=== PATIENT | male | born 1975 | race Hispanic/Latino ===

== ENCOUNTER 2017-03-13 23:48 | Emergency (ER) | payer MEDICARE ==
[2017-03-14 01:12] LABS: Urine Drugs of Abuse Note Disclamer
[2017-03-14 01:26] LABS: Bilirubin,Urine NEG (Negative); Blood,Urine NEG (Negative); Ketones,Urine NEG (Negative); Leukocyte Esterase,Urine NEG (Negative); Mucus,Urine FEW /HPF; Nitrite,Urine NEG (Negative); Protein,Urine <15 mg/dL mg/dL (Negative)
[2017-03-14 02:21] LABS: Basophils % (Auto) 0.3 % (0.0-1.8); Eosinophils % (Auto) 1.8 % (0.0-4.3); Hematocrit 46.6 % (35.5-45.6); Hemoglobin 15.8 gm/dl (11.8-15.2); Mean Corpuscular HGB Conc 34 % (32-34); Mean Corpuscular Hemoglobin 31 pg (28-32); Mean Corpuscular Volume 91 fl (84-94); Platelet Count 225 K/mm3 (140-440); Red Blood Count 5.13 M/mm3 (3.65-5.03); Red Cell Distribution Width 13.5 % (13.2-15.2)
[2017-03-14 02:38] LABS: Anion Gap 19 mmol/L; BUN/Creatinine Ratio 24.28; Blood Urea Nitrogen 17 mg/dL (9-20); Calcium 9.6 mg/dL (8.4-10.2); Carbon Dioxide 26 mmol/L (22-30); Chloride 101.3 mmol/L (98-107); Glucose 96 mg/dL (75-100); Potassium 4.4 mmol/L (3.6-5.0); Sodium 142 mmol/L (137-145)
--- NOTE | 2017-03-14 06:55 | Emergency Department Report ---
ED Psych HPI - General Chief Complaint: Psych Stated Complaint: MH EVAL Time Seen by Provider: 03/14/17 06:47 Source: patient Mode of arrival: Ambulatory Limitations: No Limitations - History of Present Illness Initial Comments: Patient is stated that he's been hearing voices asking him to kill himself. Complaint: suicidal ideation -: Gradual Associated Psychiatric Symptoms: suicidal ideation, auditory hallucinations, visual hallucinations Quality: constant If Self Harm: admits thoughts of - Related Data Home Medications Medication Instructions Recorded Confirmed Last Taken Mirtazapine [Remeron] 15 mg PO QHS 07/18/15 03/14/17 Unknown SEROquel 600 mg PO HS 03/14/17 03/14/17 Unknown Allergies Allergy/AdvReac Type Severity Reaction Status Date / Time fluphenazine enanthate AdvReac Unknown Verified 11/29/13 18:58 [From Prolixin] fluphenazine HCl AdvReac Unknown Verified 11/29/13 18:58 [From Prolixin] haloperidol [From Haldol] AdvReac Unknown Verified 11/29/13 18:58 haloperidol lactate AdvReac Unknown Verified 11/29/13 18:58 [From Haldol] risperidone [From Risperdal] AdvReac Unknown Verified 11/29/13 18:58 ED Review of Systems ROS: Stated complaint: MH EVAL Other details as noted in HPI Comment: All other systems reviewed and negative Constitutional: denies: chills, fever Respiratory: denies: cough, shortness of breath Cardiovascular: denies: chest pain ED Past Medical Hx - Past Medical History Previous Medical History?: Yes Hx Psychiatric Treatment: Yes Additional medical history: high cholesterol. suicide attempts. schizoeffective disorder. bipolar. - Surgical History Past Surgical History?: Yes Additional Surgical History: nose, right elbow and left jaw - Social History Smoking Status: Current Every Day Smoker Substance Use Type: Cocaine - Medications Home Medications: Home Medications Medication Instructions Recorded Confirmed Last Taken Type Mirtazapine [Remeron] 15 mg PO QHS 07/18/15 03/14/17 Unknown History SEROquel 600 mg PO HS 03/14/17 03/14/17 Unknown History ED Physical Exam - General Limitations: No Limitations General appearance: alert, in no apparent distress - Eye Eye exam: Present: normal appearance - ENT ENT exam: Present: normal exam - Neck Neck exam: Present: normal inspection. Absent: tenderness, meningismus - Respiratory Respiratory exam: Present: normal lung sounds bilaterally. Absent: rales, rhonchi - Cardiovascular Cardiovascular Exam: Present: regular rate, normal rhythm, normal heart sounds - GI/Abdominal GI/Abdominal exam: Present: soft. Absent: tenderness, guarding, rebound, rigid , pulsatile mass, hernia - Neurological Exam Neurological exam: Present: alert, oriented X3, CN II-XII intact - Psychiatric Psychiatric exam: Present: suicidal ideation - Skin Skin exam: Present: warm, intact ED Course Vital Signs 03/14/17 03/14/17 03/14/17 00:45 05:44 06:43 Temperature 98.8 F Pulse Rate 84 68 Respiratory 16 18 16 Rate Blood Pressure 116/78 Blood Pressure 153/101 [Right] O2 Sat by Pulse 96 97 100 Oximetry 03/14/17 08:16 Temperature Pulse Rate 92 H Respiratory 20 Rate Blood Pressure Blood Pressure 100/56 [Right] O2 Sat by Pulse 98 Oximetry ED Medical Decision Making - Lab Data Result diagrams: 03/14/17 01:50 03/14/17 01:50 Critical care attestation.: If time is entered above; I have spent that time in minutes in the direct care of this critically ill patient, excluding procedure time. ED Disposition Clinical Impression: Acute psychosis, Suicidal ideation Disposition: DC/TX-65 PSY HOSP/PSY UNIT Is pt being admited?: No Condition: Stable Referrals: PRIMARY CARE, [Primary Care Provider] - 3-5 Days
[2017-03-14 08:17] VITALS: BP 100/56
--- NOTE | 2017-03-14 12:54 | Consultation ---
History of Present Illness - Reason for Consult Consult date: 03/14/17 Reason for consult: Mental Health Evaluation Requesting physician: MARGARET BILLS - Chief Complaint Chief complaint: "Sick of living" - History of Present Psychiatric Illness 41 y.o. male presenting to [facility] for SI's and AH's. Today patient is calm and cooperative during assessment. He stated that he is suicidal because of voices he hear and life stressors. He stated that the voices are continuous throughout the day. He stated he can ignore the voices when he is on his medications, but currently has not been compliant. Also, he stated that he would like his life to be better (not having a mental illness and lacking education per the patient) . He stated that he haven't had a job in such a long time it bothers him to the point of being suicidal. He stated that he did not have a plan at this time to kill himself. He stated that the voices are "unbearable." He denies any suicide attempts in the past. He denies HI's and VH's. He stated sleep disturbances the last 3 days, but denies a poor appetite. He admit to a cocaine addiction, but denies alcohol consumption. Medications and Allergies Allergies Allergy/AdvReac Type Severity Reaction Status Date / Time fluphenazine enanthate AdvReac Unknown Verified 11/29/13 18:58 [From Prolixin] fluphenazine HCl AdvReac Unknown Verified 11/29/13 18:58 [From Prolixin] haloperidol [From Haldol] AdvReac Unknown Verified 11/29/13 18:58 haloperidol lactate AdvReac Unknown Verified 11/29/13 18:58 [From Haldol] risperidone [From Risperdal] AdvReac Unknown Verified 11/29/13 18:58 Home Medications Medication Instructions Recorded Confirmed Last Taken Type Mirtazapine [Remeron] 15 mg PO QHS 07/18/15 03/14/17 Unknown History SEROquel 600 mg PO HS 03/14/17 03/14/17 Unknown History Past psychiatric history - Past Medical History Past Medical History: other (High Cholesterol) Past Surgical History: Other (Jaw) - past Psychiatric treatment and history Psych: Addictions, Bipolar, Schizophrenia psychiatric treatment history: Multiple inpatient psy services. Denies a fam psy hx. - Social History Social history: other (10th grade education) Mental Status Exam - Vital signs Last Vital Signs Temp 98.8 F 03/14/17 00:45 Pulse 92 H 03/14/17 08:16 Resp 20 03/14/17 08:16 BP 100/56 03/14/17 08:16 Pulse Ox 98 03/14/17 08:16 - Exam Narrative exam: ROS: (+) Psychosis/Possibly Manic MSE: Appearance: calm, cooperative Behavior: regular eye contact Speech: regular rate and tone Mood: dysphoric Affect: labile Thought Process: circumstantial Thought Content: denies HI's and VH's Motor Activity: ambulatory Cognition: A/Ox 3 Insight: limited Judgment: limited Results Result Diagrams: 03/14/17 01:50 03/14/17 01:50 Abnormal lab results 03/14/17 03/14/17 Range/Units 01:50 01:50 RBC 5.13 H (3.65-5.03) M/mm3 Hgb 15.8 H (11.8-15.2) gm/dl Hct 46.6 H (35.5-45.6) % Wilson % (Auto) 8.5 H (0.0-7.3) % Creatinine 0.7 L (0.8-1.5) mg/dL All other labs normal. Assessment and Plan Assessment and plan: Impression: Historical Dx: Schizoaffective DO. Unspecified Psychotic/Mood DO. Substance Use DO (cocaine). Today patient is calm and cooperative during assessment. Active psychosis (AH's). DDx: R/O Bipolar, R/O Substance Induced Mood DO, R/O Substance Induced Psychosis Recommendation/Plan: Continue 1013 with placement to inpatient psy services. Start Seroquel 200 mg PO HS for psychotic symptoms/mood. Discussed possible metabolic side effects of Seroquel with patient. Discussed generalized coping skills with patient.
== END 2017-03-14 19:01 ==
LOC: EEVIPCON 23:48 → ED 23:48
DX: R45.851 Suicidal ideations (principal); F23 Brief psychotic disorder; F17.200 Nicotine dependence, unspecified, uncomplicated
CPT/HCPCS: 36415; 80048; 80307; 81001; 85025; 99285; G0480; 80320

== ENCOUNTER 2021-02-26 22:52 | Emergency (ER) | payer MEDICARE ==
[2021-02-27 00:23] LABS: Basophils % (Auto) 0.3 % (0.0-1.8); Eosinophils % (Auto) 0.3 % (0.0-4.3); Hematocrit 48.9 % (35.5-45.6); Lymphocytes # (Auto) 1.4 K/mm3 (1.2-5.4); Lymphocytes % (Auto) 17.3 % (13.4-35.0); Mean Corpuscular HGB Conc 35 % (32-34); Mean Corpuscular Volume 92 fl (84-94); Monocytes # (Auto) 0.7 K/mm3 (0.0-0.8); Monocytes % (Auto) 8.1 % (0.0-7.3); Platelet Count 276 K/mm3 (140-440); Red Blood Count 5.32 M/mm3 (3.65-5.03)
[2021-02-27 00:50] LABS: BUN/Creatinine Ratio 28; Blood Urea Nitrogen 22 mg/dL (9-20); Calcium 9.5 mg/dL (8.4-10.2); Hemolysis Index 19
[2021-02-27 02:17] LABS: Bilirubin,Urine NEG (Negative); Blood,Urine NEG (Negative); Color,Urine Amber (Yellow); Mucus,Urine 3+ /HPF
[2021-02-27 02:23] LABS: Amphetamine Screen,Urine PRESUMPTIVE POSITIVE; Benzodiazepines Screen,Urine PRESUMPTIVE NEGATIVE; Cannabinoid Screen,Urine PRESUMPTIVE NEGATIVE; Cocaine Screen,Urine PRESUMPTIVE POSITIVE; Methadone Screen,Urine PRESUMPTIVE NEGATIVE; Opiate Screen,Urine PRESUMPTIVE NEGATIVE
--- NOTE | 2021-02-27 02:31 | Emergency Department Report ---
ED Psych HPI - General Chief Complaint: Psych Stated Complaint: MH EVAL Time Seen by Provider: 02/27/21 01:12 Source: patient Mode of arrival: Ambulatory - History of Present Illness Initial Comments: Patient is a 45-year-old male with history of schizoaffective disorder presents to the emergency department with complaint of issues. He initially states that he is not homicidal or suicidal but needs help with some events that have happened in his rooming house. Upon further evaluation he then starts stating that there is a man in the waiting room and that he has been convinced to drive a getaway car. He also speaks in detail about the nurse practitioner who he sees in how he called recently and she is no longer available for appointments. He states that he takes Zyprexa, Depakote, Cogentin and melatonin. He states he still has medications at home. - Related Data Home Medications Medication Instructions Recorded Confirmed Last Taken Mirtazapine [Remeron] 15 mg PO QHS 07/18/15 03/14/17 Unknown SEROquel 600 mg PO HS 03/14/17 03/14/17 Unknown Allergies Allergy/AdvReac Type Severity Reaction Status Date / Time fluphenazine enanthate AdvReac Unknown Verified 11/29/13 18:58 [From Prolixin] fluphenazine HCl AdvReac Unknown Verified 11/29/13 18:58 [From Prolixin] haloperidol [From Haldol] AdvReac Unknown Verified 11/29/13 18:58 haloperidol lactate AdvReac Unknown Verified 11/29/13 18:58 [From Haldol] risperidone [From Risperdal] AdvReac Unknown Verified 11/29/13 18:58 ED Review of Systems ROS: Stated complaint: MH EVAL Other details as noted in HPI Constitutional: denies: chills, fever Eyes: denies: eye discharge ENT: denies: dental pain Respiratory: denies: cough Cardiovascular: denies: chest pain Endocrine: no symptoms reported Gastrointestinal: denies: abdominal pain, nausea, vomiting Genitourinary: denies: dysuria Musculoskeletal: denies: back pain Skin: denies: rash Neurological: denies: headache Psychiatric: as per HPI. denies: auditory hallucinations, visual hallucinations, homicidal thoughts, suicidal thoughts Hematological/Lymphatic: denies: easy bleeding ED Past Medical Hx - Past Medical History Previous Medical History?: Yes Hx Psychiatric Treatment: Yes (Schizophrenia) Additional medical history: high cholesterol. suicide attempts. schizoeffe ctive disorder. bipolar. - Surgical History Past Surgical History?: Yes Additional Surgical History: nose, right elbow and left jaw - Social History Smoking Status: Current Every Day Smoker Substance Use Type: Cocaine - Medications Home Medications: Home Medications Medication Instructions Recorded Confirmed Last Taken Type Mirtazapine [Remeron] 15 mg PO QHS 07/18/15 03/14/17 Unknown History SEROquel 600 mg PO HS 03/14/17 03/14/17 Unknown History ED Physical Exam - General Limitations: No Limitations General appearance: alert, in no apparent distress - Head Head exam: Present: atraumatic, normocephalic - Eye Eye exam: Present: normal appearance - ENT ENT exam: Present: mucous membranes moist - Neck Neck exam: Present: normal inspection - Respiratory Respiratory exam: Present: normal lung sounds bilaterally. Absent: respiratory distress - Cardiovascular Cardiovascular Exam: Present: regular rate, normal rhythm. Absent: systolic murmur, diastolic murmur, rubs, gallop - GI/Abdominal GI/Abdominal exam: Present: soft, normal bowel sounds - Rectal Rectal exam: Present: deferred - Extremities Exam Extremities exam: Present: normal inspection - Back Exam Back exam: Present: normal inspection - Neurological Exam Neurological exam: Present: alert - Psychiatric Psychiatric exam: Present: flat affect, other (tangential speech; paranoid delus ions) ED Course Vital Signs 02/26/21 02/27/21 02/27/21 23:29 01:24 09:15 Temperature 97.6 F 97.9 F Pulse Rate 93 H 82 Respiratory 17 18 18 Rate Blood Pressure 154/103 Blood Pressure 121/75 [Left] O2 Sat by Pulse 97 99 98 Oximetry - Reevaluation(s) Reevaluation #1: 02/27/21 02:31 Patient is medically cleared. ED Medical Decision Making - Lab Data Result diagrams: 02/26/21 23:40 02/26/21 23:40 - Medical Decision Making Patient is a 45-year-old male with history of schizoaffective who presents to the emergency department with complaints of issues at home. Was states when he is needs he states that he needs some resources. He denies any homicidal or suicidal ideations. 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 We will plan for patient to be evaluated by psychiatry but at this time patient does not meet criteria for 1013 hold. Critical care attestation.: If time is entered above; I have spent that time in minutes in the direct care of this critically ill patient, excluding procedure time. ED Disposition Clinical Impression: Amphetamine dependence Disposition: DC-01 TO HOME OR SELFCARE Is pt being admited?: No Condition: Stable Instructions: Amphetamines Use Disorder Additional Instructions: Professional and Agency Contacts To help Res[facility] Crises(03/03) [place] Crisis Line: Suicide Prevention Line: Crisis Text Line: Text START to 112454 Emergency: 911 Outpatient COMMUNITY Behavioral Health Resources: LILIANA: [facility] [address] [place], [place] [address] WARSAW: [facility] [address] [place] [address] [facility] - [address] [place] [id number] Friday thru Friday - 8am - 5pm [facility] Address: [address] [place] [address] [place]: [facility] Address: [address] [place] [address] Friday thru Friday- 7am-2pm [facility] Address: [address] [place] [address] Friday thru Friday: 8:30AM-5PM In case of an emergency, please contact the following numbers: [place] Crisis and Access Line: Number: Crisis Text Line: (Text START) Number: 625667 Suicide Prevention Line: Number: Emergency Number: 911 SUBSTANCE ABUSE PROGRAMS: [facility]: Location: [place], [place] [facility] Address: [address] [place] [address] [id number] [facility]: Address: [address] [place] [address] [facility]: Address: [address] [place] [address] [facility]: Address: [address] [place] [address] [facility] Address: [address] [place] [address]. Please contact above numbers to attempt placement into free based program. Medicaid Programs: [facility]: Address: [address] [place] [address] [facility]: Address: [address] [place] [address] OUTPATIENT MENTAL HEALTH RESOURCES [facility], [address] [place], [place] [id number] [facility] Ted Ramos MD: [address] [place] [address] [facility]: [address] [place], [place] [id number] [facility] [place] [address] [phone] [facility]: [address] [facility] [address] [place] [address] [phone] [facility]: [address] [facility] [address] [facility] [id number] [facility]: [address] [place], [place] Mauro Manzo MD: [address] [facility] [id number] [facility]: [address] [place], [place] [phone] [place] CRISIS AND ACCESS LINE: * Referrals: PRIMARY CARE, [Primary Care Provider] - 3-5 Days
[2021-02-27 09:16] VITALS: BP 121/75
--- NOTE | 2021-02-27 11:06 | Consultation ---
History of Present Illness - Reason for Consult Consult date: 02/27/21 Reason for consult: drug use - History of Present Psychiatric Illness Per ER Nurse: Patient is a 45-year-old male with history of schizoaffective disorder presents to the emergency department with complaint of issues. He initially states that he is not homicidal or suicidal but needs help with some events that have happened in his rooming house. Upon further evaluation he then starts stating that there is a man in the waiting room and that he has been convinced to drive a getaway car. He also speaks in detail about the nurse practitioner who he sees in how he called recently and she is no longer available for appointments. He states that he takes Zyprexa, Depakote, Cogentin and melatonin. He states he still has medications at home. During my evaluation of 45y/o Rajiv Alvarez, he is calm and cooperative. He says he's "okay, a little depressed." He says he had an episode where he lives. He says he lives with some people and had some issues. He denies SI/HI, but states "my plan was never to hurt myself or anybody." He says "just things I'm going through with this drug." The patient says "I'm on Ice and recently it's getting bad." He says he takes his medications "on and off." He denies hallucinations of any kind. PAST PSYCHIATRIC HISTORY: Diagnoses: schizoaffective disorder Suicide attempts or Self-harm behavior: Denies Prior psychiatric hospitalizations: yes Substance Abuse history: "Ice" Previous psychiatric medications tried: Cogentin, zyprexa, depakote Outpatient treatment: yes PAST MEDICAL HISTORY: None reported Family Psychiatric History: None reported or documented SOCIAL HISTORY Marital Status: Single Living Arrangements: live in a home with people Employment Status: Disabled Access to guns/weapons: Denies Education: History of Abuse: Denies Legal History: Denies REVIEW OF SYSTEMS Constitutional: Negative for weight loss ENT: Negative for stridor Respiratory: Negative for cough or hemoptysis All other systems reviewed and are negative MENTAL STATUS EXAMINATION General Appearance and Behavior: Age appropriate, good hygiene, wearing appropriate clothes, cooperative polite with questioning Cooperation: cooperative Psychomotor Behavior: Normal behavior Mood: "okay, a little depressed." Affect and affective range: congruent to stated mood Thought Process: Goal directed Thought Content: within reality Speech: Normal volume, Regular rate and rhythm Intellectual Functioning: Average Suicidal Ideation: Denies Homicidal Ideation: Denies hallucination: Denies Delusions: None elicited Impulse Control: Limited Insight and Judgment: limited Memory: Limited Attention: Divided Orientation: Drowsy Diagnoses: Amphetamine Dependence with Substance Induced Mood Current Visit: Yes Status: Acute RECOMMENDATIONS Continue previously prescribed medications Risks, benefits and alternatives of medications discussed with the patient, questions answered and consent obtained from patient. PSYCHOTHERAPY: Supportive psychotherapy provided MEDICAL: Per primary team DELIRIUM PRECAUTIONS: Please re-orient patient frequently, keep lights on during the day, and minimize benzodiazepines and opiates as these medications could worsen patient's confusion. 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 The patient understands that if SI/HI or any fear of endangerment are to arise he is to seek immediate assistance. The solar sales assessor to further discuss safety plan The solar sales assessor to give all needed resources for outpatient services, med management, drug rehab, CBT The patient to abstain from all illicit drug use He is to follow up with outpatient psych in 7 to 14 days upon discharge FOLLOW-UP: Will sign off Thank you for the consult. Please contact with any questions and/or concerns. Case staffed with Dr. Muse Medications and Allergies Allergies Allergy/AdvReac Type Severity Reaction Status Date / Time fluphenazine enanthate AdvReac Unknown Verified 11/29/13 18:58 [From Prolixin] fluphenazine HCl AdvReac Unknown Verified 11/29/13 18:58 [From Prolixin] haloperidol [From Haldol] AdvReac Unknown Verified 11/29/13 18:58 haloperidol lactate AdvReac Unknown Verified 11/29/13 18:58 [From Haldol] risperidone [From Risperdal] AdvReac Unknown Verified 11/29/13 18:58 Home Medications Medication Instructions Recorded Confirmed Last Taken Type Mirtazapine [Remeron] 15 mg PO QHS 07/18/15 03/14/17 Unknown History SEROquel 600 mg PO HS 03/14/17 03/14/17 Unknown History Mental Status Exam - Vital signs Last Vital Signs Temp 97.9 F 02/27/21 09:15 Pulse 82 02/27/21 09:15 Resp 18 02/27/21 09:15 BP 121/75 02/27/21 09:15 Pulse Ox 98 02/27/21 09:15 Results Result Diagrams: 02/26/21 23:40 02/26/21 23:40 Abnormal lab results 02/26/21 02/26/21 02/26/21 Range/Units 23:40 23:40 23:40 RBC 5.32 H (3.65-5.03) M/mm3 Hgb 17.0 H (11.8-15.2) gm/dl Hct 48.9 H (35.5-45.6) % MCHC 35 H (32-34) % [place] % (Auto) 8.1 H (0.0-7.3) % Seg Neutrophils % 74.0 H (40.0-70.0) % Chloride 97.9 L (98-107) mmol/L BUN 22 H (9-20) mg/dL Glucose 107 H (75-100) mg/dL Ur Specific [place] (1.003-1.030) Salicylates < 0.3 L (2.8-20.0) mg/dL Acetaminophen (10.0-30.0) ug/mL 02/26/21 02/26/21 Range/Units 23:40 Unknown RBC (3.65-5.03) M/mm3 Hgb (11.8-15.2) gm/dl Hct (35.5-45.6) % MCHC (32-34) % [place] % (Auto) (0.0-7.3) % Seg Neutrophils % (40.0-70.0) % Chloride (98-107) mmol/L BUN (9-20) mg/dL Glucose (75-100) mg/dL Ur Specific [place] 1.032 H (1.003-1.030) Salicylates (2.8-20.0) mg/dL Acetaminophen 5.0 L (10.0-30.0) ug/mL All other labs normal.
== END 2021-02-27 13:36 | disposition home or self-care (01) ==
LOC: ED 22:52 → EEVIPCON 22:52 → ED 02-27 13:36
DX: F25.9 Schizoaffective disorder, unspecified (principal); F17.200 Nicotine dependence, unspecified, uncomplicated; F14.10 Cocaine abuse, uncomplicated; Z98.890 Other specified postprocedural states; Z79.899 Other long term (current) drug therapy; Z88.8 Allergy status to other drugs, medicaments and biological substances
CPT/HCPCS: 36415; 80048; 80307; 80320; 81001; 85025; G0480

== ENCOUNTER 2021-10-01 19:43 | Emergency (ER) | payer MEDICARE ==
[2021-10-01 23:35] LABS: Basophils % (Auto) 0.3 % (0.0-1.8); Eosinophils # (Auto) 0.1 K/mm3 (0.0-0.4); Eosinophils % (Auto) 1.1 % (0.0-4.3); Hematocrit 46.8 % (35.5-45.6); Hemoglobin 16.3 gm/dl (11.8-15.2); Lymphocytes # (Auto) 1.8 K/mm3 (1.2-5.4); Lymphocytes % (Auto) 31.6 % (13.4-35.0); Mean Corpuscular HGB Conc 35 % (32-34); Mean Corpuscular Volume 93 fl (84-94); Monocytes # (Auto) 0.5 K/mm3 (0.0-0.8); Monocytes % (Auto) 9.1 % (0.0-7.3); Platelet Count 219 K/mm3 (140-440); Red Blood Count 5.04 M/mm3 (3.65-5.03); Red Cell Distribution Width 13.8 % (13.2-15.2)
[2021-10-01 23:49] LABS: Blood Urea Nitrogen 17 mg/dL (9-20); Calcium 9.6 mg/dL (8.4-10.2); Hemolysis Index 58
[2021-10-01 23:51] LABS: BUN/Creatinine Ratio 24
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
[2021-10-02] MEDS ORDERED: TETANUS,DIPH,PERTUSS(ACELL) VACCINE 0.5 ML SYRINGE IM ONE (01:49)
[2021-10-02] MEDS ORDERED: HYDROmorphone 1 MG/1 ML INJ IV ONE (01:50)
[2021-10-02] MEDS ORDERED: ONDANSETRON 4 MG/2 ML INJ IV ONE (01:50)
[2021-10-02] MEDS ORDERED: AMPICILLIN/SULBACTA 3GM/100ML 3 GM/100 ML BAG IV ONE (02:30)
[2021-10-02 03:26] LABS: Bilirubin,Urine NEG (Negative); Blood,Urine NEG (Negative); Color,Urine Yellow (Yellow); Mucus,Urine FEW /HPF; Protein,Urine <15 mg/dL mg/dL (Negative); Urobilinogen,Urine < 2.0 mg/dL (<2.0)
[2021-10-02 03:32] LABS: Amphetamine Screen,Urine Negative; Benzodiazepines Screen,Urine Negative; Cannabinoid Screen,Urine Negative; Methadone Screen,Urine Negative; Opiate Screen,Urine Negative
[2021-10-02 03:45] LABS: Cocaine Screen,Urine Positive
[2021-10-02 10:09] VITALS: BP 109/57
== END 2021-10-02 10:07 | disposition short-term general hospital (02) ==
LOC: ED 19:43
DX: S02.2XXA Fracture of nasal bones, initial encounter for closed fracture (principal); S02.32XB Fracture of orbital floor, left side, initial encounter for open fracture; S02.842B Fracture of lateral orbital wall, left side, initial encounter for open fracture; S02.40FA Zygomatic fracture, left side, initial encounter for closed fracture; S04.32XA Injury of trigeminal nerve, left side, initial encounter; S02.401A Maxillary fracture, unspecified side, initial encounter for closed fracture; S09.90XA Unspecified injury of head, initial encounter; F29 Unspecified psychosis not due to a substance or known physiological condition; F17.200 Nicotine dependence, unspecified, uncomplicated; Z98.890 Other specified postprocedural states; W26.8XXA Contact with other sharp object(s), not elsewhere classified, initial encounter; Y93.89 Activity, other specified; Y92.89 Other specified places as the place of occurrence of the external cause; Y99.8 Other external cause status
CPT/HCPCS: 36415; 70450; 70486; 72125; 80048; 80307; 81001; 85025; 87040; 90471; 90715; 96365; 96375; 99291; J0295; J1170; J2405; 80320; G0480